=== PATIENT | female | born 1950 | race Hispanic/Latino ===

== ENCOUNTER 2018-07-29 20:32 | Emergency (ER) | payer MEDICARE, OTHER ==
[2018-07-29] MEDS ORDERED: LIDOCAINE HCL MPF 1% 5ML VIAL ONE ×2 (21:07→21:10)
[2018-07-29] MEDS ORDERED: TETANUS/DIPHTHERIA TOXOID [ADULT] 0.5 ML VIAL IM ONE (21:07)
[2018-07-29] MEDS ORDERED: BUPIVACAINE/PF 0.5% 30ML VIAL ONE (21:10)
[2018-07-29] MEDS ORDERED: OCTYL 2-CYANOACRYLATE 1 EACH TP ONE (21:24)
== END 2018-07-29 22:44 | disposition home or self-care (01) ==
LOC: EDH 20:32
DX: S61.211A Laceration without foreign body of left index finger without damage to nail, initial encounter (principal); E11.9 Type 2 diabetes mellitus without complications; E78.5 Hyperlipidemia, unspecified; I10 Essential (primary) hypertension; Z88.8 Allergy status to other drugs, medicaments and biological substances; Z86.718 Personal history of other venous thrombosis and embolism; Z90.710 Acquired absence of both cervix and uterus; Z98.890 Other specified postprocedural states; W26.8XXA Contact with other sharp object(s), not elsewhere classified, initial encounter; Y93.H9 Activity, other involving exterior property and land maintenance, building and construction; Y92.89 Other specified places as the place of occurrence of the external cause; Y99.8 Other external cause status
CPT/HCPCS: 12041; 73140; 90471; 90714; 99284; J3490 ×3

== ENCOUNTER → 2019-03-06 | Outpatient (CLI) | payer OTHER | END | disposition home or self-care (01) | LOC: OIH 11:04 | PROVIDERS: ATTEND Family Medicine | DX: Z13.6 Encounter for screening for cardiovascular disorders (principal) | CPT/HCPCS: 75571 ==

== ENCOUNTER → 2019-12-04 | Outpatient (CLI) | payer OTHER | END | disposition home or self-care (01) | LOC: OIH 08:22 | PROVIDERS: ATTEND Neuromusculoskeletal Medicine & OMM | DX: M47.812 Spondylosis without myelopathy or radiculopathy, cervical region (principal); M25.78 Osteophyte, vertebrae; M48.02 Spinal stenosis, cervical region | CPT/HCPCS: 72050 ==

== ENCOUNTER → 2024-05-29 | Outpatient (CLI) | payer OTHER ==
[~2024-05-29] MED LIST: AMLO5TAB4 PO; ASPI-1005 PO; ATOR10 PO; CHOL2000 PO; ENAL10TA63 PO; GLIP-196 PO; METF-444 PO; OMEG100014 PO; PROP80CA59 PO
== END | disposition home or self-care (01) ==
LOC: RAH 10:26
PROVIDERS: ATTEND Urology
DX: N20.0 Calculus of kidney (principal)
CPT/HCPCS: 74018